=== PATIENT | male | born 1985 | race Caucasian/White ===

== ENCOUNTER 2021-07-01 10:08 | Inpatient (IN) | payer OTHER ==
[~2021-07-01] VITALS: Ht 170.2 cm; Wt 73.0 kg
--- NOTE | 2021-07-01 10:26 | PHYS DOC ---
General Adult EDM: Chief Complaint: CHEST PAIN HPI: HPI: 35 yo M with medical history of anxiety/depression on Lexapro and lumbar back pain, presents to the ED with complaints of throbbing and clenching left-sided chest pain that radiates into his bicep and down into his hand that started at 815 this morning with associated sweating and nausea. States pain and discomfort has been constant. Father with history of AR at 51 and mother with history of AR in her early 40s. Brother has a history of cardiac surgery 1 month ago. Both grandparents with history of coronary artery disease. Patient denies any tobacco, cocaine or methamphetamine abuse. No recent alcohol use. Past surgical history of umbilical hernia repair November 18, 2019. Works in the [employer] at [place] and walks approximately 7 miles per day. Is been vaccinated for COVID and boosted. No history of Covid infection. No excessive caffeine use, drinks 1 soda per day. No personal or family history of AAA, AAD, CTD (ehlos danlos or marfans), sudden or unexplainable (under 50 years of age or with exertion), or clotting disorders. Review of Systems: Review of Systems: Constitutional: Denies fever or chills. [] Eyes: Denies change in visual acuity. [] HENT: Denies nasal congestion or sore throat. [] Respiratory: Denies cough or shortness of breath. [] Cardiovascular: Denies syncope or edema GI: Denies abdominal pain, nausea, vomiting, bloody stools or diarrhea. [] : Denies dysuria or hematuria Musculoskeletal: Denies back pain or joint pain. [] Integument: Denies rash or blistering lesions Neurologic: Denies headache, focal weakness or sensory changes. [] Endocrine: Denies polyuria or polydipsia. [] Lymphatic: Denies swollen glands. [] Psychiatric: Denies depression or anxiety. [] Heart Score: C/O Chest Pain: Yes HEART Score for Chest Pain: HEART Score for Chest Pain Response (Comments) Value History Moderately Suspicious 1 ECG Nonspecific Repolarizatio 1 Age < 45 0 Risk Factors 1 or 2 Risk Factors 1 Troponin < Normal Limit 0 Total 3 Risk Factors: Risk Factors: DM, Current or recent (<one month) smoker, HTN, HLP, family history of CAD, obesity. Risk Scores: Score 0 - 3: 2.5% MACE over next 6 weeks - Discharge Home Score 4 - 6: 20.3% MACE over next 6 weeks - Admit for Clinical Observation Score 7 - 10: 72.7% MACE over next 6 weeks - Early Invasive Strategies Allergies: Allergies: Allergies Coded Allergies Type Severity Reaction Last Updated Verified No Known Drug Allergies 07/01/21 No Physical Exam: PE: Constitutional: Well developed, well nourished, no acute distress, non-toxic appearance. HENT: Normocephalic, atraumatic, Eyes: EOMI, conjunctiva normal, no discharge. Neck: Normal range of motion, supple, Cardiovascular: S1/2 present, bradycardic Lungs & Thorax: Speaking in full sentences, bilateral equal chest rise, no tachypnea or increased work of breathing Abdomen: soft, no tenderness, Skin: Warm, dry, no erythema, no rash. [] Extremities: No tenderness, no cyanosis, no unilateral lower extremity edema Neurologic: Alert and oriented X 3, normal motor function, normal sensory function, no focal deficits noted. [] Psychologic: Affect normal, judgement normal, mood -slightly anxious EKG: EK sinus bradycardia 44 bpm, no axis deviation, normal intervals, suspect hyperacute T waves in 2, 3 and aVF with T wave inversion aVL and V2, slight ST segment depression in aVL, no prior EKG for comparison 1023 sinus bradycardia 44 bpm, no axis deviation, normal intervals, suspect hyperacute T waves in 2, 3 aVF with T wave inversion and ST segment depression in aVL, no change from prior EKG Radiology/Procedures: Radiology/Procedures: IMAGING REPORT Signed PATIENT: ANGIE WILEY ACCOUNT: [id number] : 1985 LOCATION: ER AGE: 35 SEX: M EXAM STATUS: REG ER ORD. PHYSICIAN: SANDRO BUTTS DO REASON: cp PROCEDURE: PORTABLE CHEST 1V AP chest. HISTORY: Chest pain AP view was taken of the chest. Lungs are free of infiltrates. Heart is normal in size. There is no pleural effusion. IMPRESSION: 1. No acute chest disease. Electronically signed by: Carroll Kasper MD (07/01/2021 10:38 AM) [id number] DICTATED and SIGNED BY: CARROLL KASPER MD DATE: 07/01/21 1038 Course & Med Decision Making: Course & Med Decision Making Pertinent Labs and Imaging studies reviewed. (See chart for details) Concern for typical chest pain with hyperacute T-waves in inferior leads. I d/w cardiology, Dr. Buckley at 10:28 who reviewed ekgs and recommended aspirin, heparin bolus and infusion and morphine-he evaluated pt in ed. No cath at this time. Pt with h/o normal stress 2 months ago at . Will admit for further medical management. Patient stable at time of admission agrees with this plan. I have spoken with the patient and/or caregivers. I have explained the patient's condition, diagnosis and treatment plan based on the information available to me at this time. I have answered the patient's and/or caregivers questions and answered any concerns. The patient and/or caregivers have as good an understanding of the patient's diagnosis, condition and treatment plan as can be expected at this point. The patient has been stabilized within the capability of the emergency department. The patient will be transported for further care and management or will be moved to an observation or inpatient service. I have communicated with the staff or medical practitioner taking over this patient's care. Jose Disclaimer: Jose Disclaimer: This electronic medical record was generated, in whole or in part, using a voice recognition dictation system. Departure Departure Impression: Primary Impression: Chest pain at rest Disposition: ADMITTED INPATIENT Admitting Physician: KELECHI (Dr. Zarco) Condition: GUARDED Referrals: UNKNOWN PCP NAME (PCP) SANDRO BUTTS DO Jul 01, 2021 10:26
[2021-07-01 10:29] LABS: BASO # 0.1 x10^3/uL (0.0-0.2); BASO % 1 % (0-3); EOS # 0.1 x10^3/uL (0.0-0.7); EOS % 1 % (0-3); HEMATOCRIT 43.4 % (39.0-53.0); HEMOGLOBIN 14.9 g/dL (13.0-17.5); LYMPH # 1.4 x10^3/uL (1.0-4.8); LYMPH % 19 % (24-48); MEAN CORPUSCULAR HEMOGLOBIN 31 pg (25-35); MEAN CORPUSCULAR HGB CONC 34 g/dL (31-37); MEAN CORPUSCULAR VOLUME 90 fL (79-100); MONO # 0.4 x10^3/uL (0.0-1.1); MONO % 6 % (0-9); NEUT # 5.3 x10^3/uL (1.8-7.7); NEUT % 73 % (31-73); PLATELET COUNT 218 x10^3/uL (140-400); RED BLOOD COUNT 4.81 x10^6/uL (4.30-5.70); RED CELL DISTRIBUTION WIDTH 13.2 % (11.5-14.5); WHITE BLOOD COUNT 7.3 x10^3/uL (4.0-11.0)
[2021-07-01] MEDS ORDERED: ASPIRIN CHEWABLE 81 MG TABLET. PO ONE (10:30)
[2021-07-01] MEDS ORDERED: HEPARIN for IV BOLUS 10,000 UNIT/10 ML VIAL. IV PRN (10:30)
[2021-07-01] MEDS ORDERED: ONDANSETRON PF 4 MG/2 ML VIAL. IVP ONE (10:30)
[2021-07-01] MEDS ORDERED: IV NORMAL SALINE 1000ML BAG 1,000 ML IV SCH (10:30)
[2021-07-01] MEDS ORDERED: MORPHINE SULFATE 4 MG/ML INJ. IVP ONE (10:30)
[2021-07-01] MEDS ORDERED: HEPARIN for IV BOLUS 10,000 UNIT/10 ML VIAL. ONE (10:33)
[2021-07-01] MEDS ORDERED: HEPARIN 25,000UTS/250ML PREMIX 250 ML IV ONE (10:33)
[2021-07-01 10:36] LABS: CALCIUM 8.9 mg/dL (8.5-10.1); CREATININE 1.2 mg/dL (0.7-1.3); GFR 68.1; POTASSIUM 3.9 mmol/L (3.5-5.1)
--- NOTE | 2021-07-01 10:41 | RAD ---
AP chest. HISTORY: Chest pain AP view was taken of the chest. Lungs are free of infiltrates. Heart is normal in size. There is no p leural effusion. IMPRESSION: 1. No acute chest disease. Electronically signed by: Carroll Kasper MD (07/01/2021 10:38 AM) [id number]
[2021-07-01 10:42] LABS: ALBUMIN 4.4 g/dL (3.4-5.0); ALBUMIN/GLOBULIN RATIO 1.4 (1.0-1.7); TOTAL BILIRUBIN 0.7 mg/dL (0.2-1.0); TOTAL PROTEIN 7.6 g/dL (6.4-8.2)
[2021-07-01] MEDS: HEPARIN 25,000UTS/250ML PREMIX 250 ML IV PRN (10:43)
[2021-07-01] MEDS ORDERED: HEPARIN for IV BOLUS 10,000 UNIT/10 ML VIAL. IV ONE (10:45)
[2021-07-01 12:42] LABS: PROTHROMBIN TIME PATIENT 12.9 SEC (11.7-14.0)
--- NOTE | 2021-07-01 12:52 | HP ---
DATE OF SERVICE: 07/01/2021 ADMIT DATE: 07/01/2021 CHIEF COMPLAINT: Chest pain. HISTORY OF PRESENT ILLNESS: The patient is a pleasant 35-year-old male who presents to the ER with chest pain, rates it 710. He feels like he may be having a heart attack, it is in the left side of his chest and into his biceps and down his hand, started at 8:30 this morning. His family has had coronary artery disease in fact, his dad had a heart attack at 51 and his mother has a history of coronary artery disease in her 40s. Dr. Branham saw the patient in the ER. He was placed on a heparin drip. It should be noted that the patient had a normal stress test a couple months ago. We are going to admit the patient and Dr. Buckley is considering cardiac catheterization. PAST MEDICAL HISTORY: Chest pain and previous stress test that was apparently negative. ALLERGIES: None. FAMILY HISTORY: Coronary artery disease. SOCIAL HISTORY: He does not drink, smoke or take drugs. MEDICATIONS: Reviewed, please refer to the MRAD. REVIEW OF SYSTEMS: GENERAL: No history of weight change, weakness or fevers. SKIN: No bruising, hair changes or rashes. EYES: No blurred, double or loss of vision. NOSE AND THROAT: No history of nosebleeds, hoarseness or sore throat. HEART: He complains of intermittent chest pain. LUNGS: Denies cough, hemoptysis, wheezing or shortness of breath. GASTROINTESTINAL: Denies changes in appetite, nausea, vomiting, diarrhea or constipation. GENITOURINARY: No history of frequency, urgency, hesitancy or nocturia. NEUROLOGIC: Denies history of numbness, tingling, tremor or weakness. PSYCHIATRIC: No history of panic, anxiety or depression. ENDOCRINE: No history of heat or cold intolerance, polyuria or polydipsia. EXTREMITIES: Denies muscle weakness, joint pain, pain on walking or stiffness. PHYSICAL EXAMINATION: VITALS: Within normal limits and are stable. GENERAL: No apparent distress. Alert and oriented. HEENT: Normal cephalic atraumatic, external auditory canals are patent EYES: Extraocular muscles are intact, pupils are equally round and reactive to light and accommodation MUSCULOSKELETAL: Well developed, well nourished, good range of motion ENDOCRINE: No thyromegaly was palpated LYMPHATICS: No cervical chain or axillary nodes were noted HEMATOPOIETIC: No bruising NECK: Supple, no JVD, no thyromegaly was noted. LUNGS: Clear to auscultation in all lung jarrell without rhonchi or wheezing. HEART: RRR, S1, S2 present. Peripheral pulses intact, no obvious murmurs were noted. ABDOMEN: Soft, nontender. Positive bowel sounds no organomegaly, normal bowel sounds. EXTREMITIES: Without any cyanosis, clubbing, or edema. Pedal pulses intact, Homans sign is negative. NEUROLOGIC: Normal speech, normal tone. A and O x 3, moves all extremities, no obvious focal deficits. PSYCHIATRIC: Normal affect, normal mood. Stable. SKIN: No ulcerations or rashes, good skin turgor, no jaundice. VASCULAR: Good capillary refill, neurovascular bundle appears to be intact. LABORATORY DATA: Troponin is 6. Chest x-ray is negative. EKG shows some subtle ST elevation in the inferior leads. ASSESSMENT AND PLAN: Chest pain with subtle ST changes in the inferior leads. The patient has been admitted. We will consult Cardiology. We placed on a heparin drip. Dr. Buckley is considering possible cardiac catheterization. Home meds. Deep venous thrombosis prophylaxis. Full code. Cardiac monitoring. P.r.n. morphine. NEO/PRA DR: NEO/carolyn TID: [id number]
--- NOTE | 2021-07-01 14:13 | PDOC2 ---
CONSULT Date of Consult Date of Consult DATE: 07/01/21 TIME: 14:06 Reason for Consult Reason for Consult: Chest pain Referring Physician Referring Physician: Dr. Zarco Identification/Chief Complaint Chief Complaint Chest pain Source Source: Chart review, Patient History of Present Illness Reason for Visit: The patient is a 35-year-old male who presents to the emergency room with episodes of left-sided chest pain with some radiation to his left arm. This started earlier this morning. He states that he has had recurrent episodes of chest discomfort. His EKG shows a sinus rhythm with some mild ST segment changes in the inferior leads. He was initially treated with heparin and pain medications and is feeling significantly better at this time. His chest x-ray shows no acute disease. He has a strong family history of early coronary disease. He also reports a normal treadmill stress echo at approximately 2 months ago with him reportedly walking from more than 12 minutes on a Jean protocol. He remains quite active up until today and walks greater than 6 miles a day by his report. Initial lab included a troponin of 6 BNP of 60 and a D- dimer of less than 0.27. Past Medical History Cardiovascular: Other (Chest pain) Musculoskeletal: low back pain Past Surgical History Past Surgical History: No pertinent history Family History Family History: Other (Strong family history of early coronary disease) Social History No ALCOHOL: none Current Problem List Problem List Problems Medical Problems: (1) Chest pain at rest Status: Acute Current Medications Current Medications Current Medications Aspirin (Aspirin Chewable) 324 mg 1X ONCE PO Last administered on 07/01/21at 10:38; Start 07/01/21 at 10:30; Stop 07/01/21 at 10:31; Status DC Sodium Chloride 1,000 ml @ 1,000 mls/hr Q1H IV Last administered on 07/01/21at 10:40; Start 07/01/21 at 10:30; Stop 07/01/21 at 11:29; Status DC Ondansetron HCl (Zofran) 4 mg 1X ONCE IVP Last administered on 07/01/21at 10:38; Start 07/01/21 at 10:30; Stop 07/01/21 at 10:31; Status DC Morphine Sulfate (Morphine Sulfate) 4 mg 1X ONCE IVP Last administered on 07/01/21at 10:39; Start 07/01/21 at 10:30; Stop 07/01/21 at 10:31; Status DC Heparin Sodium (Porcine) (Heparin Sodium) 4,000 unit 1X ONCE IV Last adminis tered on 07/01/21at 10:37; Start 07/01/21 at 10:45; Stop 07/01/21 at 10:46; Status DC Heparin Sodium/ Dextrose 250 ml @ 8.724 mls/ hr CONT PRN IV PER PROTOCOL Last administered on 07/01/21at 10:43; Start 07/01/21 at 10:30 Heparin Sodium (Porcine) (Heparin Sodium) 1,800 unit PRN Q6HRS PRN IV FOR UFH LEVEL LESS THAN 0.2; Start 07/01/21 at 10:30 Heparin Sodium (Porcine) (Heparin Sodium) 10,000 unit STK-MED ONCE .ROUTE ; Start 07/01/21 at 10:33; Stop 07/01/21 at 10:33; Status DC Heparin Sodium/ Dextrose 250 ml @ As Directed STK-MED ONCE IV ; Start 07/01/21 at 10:33; Stop 07/01/21 at 10:33; Status DC Allergies Allergies: Coded Allergies: No Known Drug Allergies (Unverified , 07/01/21) ROS Cardiovascular: yes Chest Pain Physical Exam General: mild distress HEENT: Atraumatic Lungs: Clear to auscultation Heart: Regular rate Abdomen: Normal bowel sounds Vitals VITALS Vital Signs Date Time Temp Pulse Resp B/P (MAP) Pulse Ox O2 Delivery O2 Flow Rate FiO2 07/01/21 12:47 48 14 121/72 (88) 98 Room Air 07/01/21 10:18 97.7 97.7 Labs Labs Laboratory Tests Test 07/01/21 10:19 07/01/21 10:30 07/01/21 12:24 White Blood Count 7.3 x10^3/uL (4.0-11.0) Red Blood Count 4.81 x10^6/uL (4.30-5.70) Hemoglobin 14.9 g/dL (13.0-17.5) Hematocrit 43.4 % (39.0-53.0) Mean Corpuscular Volume 90 fL (79-100) Mean Corpuscular Hemoglobin 31 pg (25-35) Mean Corpuscular Hemoglobin Concent 34 g/dL (31-37) Red Cell Distribution Width 13.2 % (11.5-14.5) Platelet Count 218 x10^3/uL (140-400) Neutrophils (%) (Auto) 73 % (31-73) Lymphocytes (%) (Auto) 19 % (24-48) Monocytes (%) (Auto) 6 % (0-9) Eosinophils (%) (Auto) 1 % (0-3) Basophils (%) (Auto) 1 % (0-3) Neutrophils # (Auto) 5.3 x10^3/uL (1.8-7.7) Lymphocytes # (Auto) 1.4 x10^3/uL (1.0-4.8) Monocytes # (Auto) 0.4 x10^3/uL (0.0-1.1) Eosinophils # (Auto) 0.1 x10^3/uL (0.0-0.7) Basophils # (Auto) 0.1 x10^3/uL (0.0-0.2) D-Dimer ([place]) < 0.27 ug/mlFEU Heparin Anti-Xa Act, Unfractionated < 0.10 IU/mL (0.30-0.70) Sodium Level 140 mmol/L (136-145) Potassium Level 3.9 mmol/L (3.5-5.1) Chloride Level 105 mmol/L (98-107) Carbon Dioxide Level 29 mmol/L (21-32) Anion Gap 6 (6-14) Blood Urea Nitrogen 14 mg/dL (8-26) Creatinine 1.2 mg/dL (0.7-1.3) Estimated GFR (Cockcroft-Gault) 68.1 BUN/Creatinine Ratio 12 (6-20) Glucose Level 130 mg/dL (70-99) Calcium Level 8.9 mg/dL (8.5-10.1) Magnesium Level 2.0 mg/dL (1.8-2.4) Total Bilirubin 0.7 mg/dL (0.2-1.0) Aspartate Amino Transf (AST/SGOT) 14 U/L (15-37) Alanine Aminotransferase (ALT/SGPT) 16 U/L (16-63) Alkaline Phosphatase 59 U/L (46-116) Troponin I High Sensitivity 6 ng/L (4-75) WS-Jct-O-Type Natriuretic Peptide 60 pg/mL (0-124) Total Protein 7.6 g/dL (6.4-8.2) Albumin 4.4 g/dL (3.4-5.0) Albumin/Globulin Ratio 1.4 (1.0-1.7) Prothrombin Time 12.9 SEC (11.7-14.0) Prothromb Time International Ratio 1.0 (0.8-1.1) Activated Partial Thromboplast Time 27 SEC (24-38) SARS-CoV-2 Antigen (Rapid) Negative (NEGATIVE) Laboratory Tests Test 07/01/21 10:19 07/01/21 10:30 07/01/21 12:24 White Blood Count 7.3 x10^3/uL (4.0-11.0) Red Blood Count 4.81 x10^6/uL (4.30-5.70) Hemoglobin 14.9 g/dL (13.0-17.5) Hematocrit 43.4 % (39.0-53.0) Mean Corpuscular Volume 90 fL (79-100) Mean Corpuscular Hemoglobin 31 pg (25-35) Mean Corpuscular Hemoglobin Concent 34 g/dL (31-37) Red Cell Distribution Width 13.2 % (11.5-14.5) Platelet Count 218 x10^3/uL (140-400) Neutrophils (%) (Auto) 73 % (31-73) Lymphocytes (%) (Auto) 19 % (24-48) Monocytes (%) (Auto) 6 % (0-9) Eosinophils (%) (Auto) 1 % (0-3) Basophils (%) (Auto) 1 % (0-3) Neutrophils # (Auto) 5.3 x10^3/uL (1.8-7.7) Lymphocytes # (Auto) 1.4 x10^3/uL (1.0-4.8) Monocytes # (Auto) 0.4 x10^3/uL (0.0-1.1) Eosinophils # (Auto) 0.1 x10^3/uL (0.0-0.7) Basophils # (Auto) 0.1 x10^3/uL (0.0-0.2) D-Dimer ([place]) < 0.27 ug/mlFEU Heparin Anti-Xa Act, Unfractionated < 0.10 IU/mL (0.30-0.70) Sodium Level 140 mmol/L (136-145) Potassium Level 3.9 mmol/L (3.5-5.1) Chloride Level 105 mmol/L (98-107) Carbon Dioxide Level 29 mmol/L (21-32) Anion Gap 6 (6-14) Blood Urea Nitrogen 14 mg/dL (8-26) Creatinine 1.2 mg/dL (0.7-1.3) Estimated GFR (Cockcroft-Gault) 68.1 BUN/Creatinine Ratio 12 (6-20) Glucose Level 130 mg/dL (70-99) Calcium Level 8.9 mg/dL (8.5-10.1) Magnesium Level 2.0 mg/dL (1.8-2.4) Total Bilirubin 0.7 mg/dL (0.2-1.0) Aspartate Amino Transf (AST/SGOT) 14 U/L (15-37) Alanine Aminotransferase (ALT/SGPT) 16 U/L (16-63) Alkaline Phosphatase 59 U/L (46-116) Troponin I High Sensitivity 6 ng/L (4-75) YD-Onq-E-Type Natriuretic Peptide 60 pg/mL (0-124) Total Protein 7.6 g/dL (6.4-8.2) Albumin 4.4 g/dL (3.4-5.0) Albumin/Globulin Ratio 1.4 (1.0-1.7) Prothrombin Time 12.9 SEC (11.7-14.0) Prothromb Time International Ratio 1.0 (0.8-1.1) Activated Partial Thromboplast Time 27 SEC (24-38) SARS-CoV-2 Antigen (Rapid) Negative (NEGATIVE) Images Images Chest x-ray with no acute changes. Assessment/Plan Assessment/Plan 1. Chest pain. Patient's initial troponin is normal. BNP is 60 and D-dimer is less than 0.27. The patient's EKG shows some nonspecific inferior ST segment changes. He reports a normal stress echo at approximately 2 months ago with walking greater than 12 minutes on a Jean protocol. He is feeling significantly better after initial treatment. We will admit and treat with anticoagulation. Will rule out for an NM. Will check old records at . Patient potentially may require catheterization tomorrow. 2. History of apparent borderline hypertension. We will continue present medications and monitor. 3. Uncertain cholesterol panel. Will check morning lab. Thank you for allowing us to participate in the care of your patient. ANGIE MEYER MD Jul 01, 2021 14:13
[2021-07-01 15:00] VITALS: BP 120/75
[2021-07-01 16:00] VITALS: BP 100/59
[2021-07-01] MEDS ORDERED: MORPHINE SULFATE 2 MG/ML INJ. IV PRN (16:00)
[2021-07-01 16:05] LABS: BACTERIA,URINE 0 /HPF (0-FEW); BILIRUBIN,URINE NEGATIVE (NEG); CLARITY,URINE CLEAR; COLOR,URINE YELLOW; NITRITE,URINE NEGATIVE (NEG); PH,URINE 7.5 (<5.0-8.0); PROTEIN,URINE NEGATIVE (NEG-TRACE); RBC,URINE 0 /HPF (0-2); UROBILINOGEN,URINE 0.2 mg/dL (0.2 mg/dL); WBC,URINE 0 /HPF (0-4)
[2021-07-01 16:26] LABS: AMPHETAMINE/METHAMPHETAMINE NEG (NEG); BARBITURATES NEG (NEG); BENZODIAZEPINES NEG (NEG); CANNABINOIDS NEG (NEG); COCAINE NEG (NEG); METHADONE NEG (NEG); OPIATES POS (NEG); PHENCYCLIDINE NEG (NEG)
[2021-07-01] MEDS ORDERED: NITROGLYCERIN SUBLINGUAL 0.4 MG BOTTLE OF 25. SL ONE (16:41)
[2021-07-01 17:00] VITALS: BP 92/54
[2021-07-01] MEDS ORDERED: NITROGLYCERIN SUBLINGUAL 0.4 MG BOTTLE OF 25. SL PRN (17:00)
[2021-07-01] MEDS ORDERED: MORPHINE SULFATE 2 MG/ML INJ. IVP ONE (17:15)
[2021-07-01] MEDS ORDERED: IV NORMAL SALINE 500ML BAG 500 ML IV ONE (17:30)
[2021-07-01] MEDS: LORazepam 0.5 MG TABLET PO PRN ×2 (17:41→23:17)
[2021-07-01 18:00] VITALS: BP 100/61
--- NOTE | 2021-07-01 18:38 | EKG ---
[facility] [address] [place] [address] Test Date: 2021-07-01 Test Time: 10:14:21 Pat Name: ANGIE WILEY Department: Room: [facility] Gender: M Underwriter: : 1985 Requested By: SANDRO BUTTS Order Number: [id number] Reading MD: Mark Lange MD Measurements Intervals [place] Rate: 44 P: 62 [place]: 146 QRS: 68 QRSD: 92 T: 87 QT: 492 QTc: 421 Interpretive Statements SINUS BRADYCARDIA LEFT ATRIAL ABNORMALITY CONSIDER RIGHT VENTRICULAR HYPERTROPHY ST & T ABNORMALITY, CONSIDER HIGH LATERAL ISCHEMIA OR LEFT VENTRICULAR STRAIN ABNORMAL ECG Electronically Signed On 07-02-2021 8:34:32 CDT by Mark Lange MD
--- NOTE | 2021-07-01 18:39 | EKG ---
[facility] [address] [place] [address] Test Date: 2021-07-01 Test Time: 10:23:03 Pat Name: ANGIE WILEY Department: Room: Gender: Business Support Specialist: : 1985 Requested By: SANDRO BUTTS Order Number: [id number] Reading MD: Measurements Intervals [place] Rate: 44 P: 54 [place]: 140 QRS: 59 QRSD: 92 T: 79 QT: 476 QTc: 407 Interpretive Statements SINUS BRADYCARDIA ATRIAL PREMATURE COMPLEX(ES) T ABNORMALITY IN HIGH LATERAL LEADS ABNORMAL ECG RI6.02 Compared to ECG 07/01/2021 10:14:21 Atrial abnormality no longer present Possible ischemia no longer present T-wave abnormality still present
--- NOTE | 2021-07-01 18:47 | EKG ---
[facility] [address] [place] [address] Test Date: 2021-07-01 Test Time: 11:18:38 Pat Name: ANGIE WILEY Department: Room: [facility] Gender: M Sales Support Engineer: : 1985 Requested By: ANGIE MEYER Order Number: [id number] Reading MD: Mark Lange MD Measurements Intervals [place] Rate: 41 P: 54 [place]: 154 QRS: 60 QRSD: 90 T: 87 QT: 474 QTc: 392 Interpretive Statements SINUS BRADYCARDIA ABNORMAL EKG WITH INFERIOR/LATERAL ISCHEMIA Electronically Signed On 07-02-2021 8:34:00 CDT by Mark Lange MD
[2021-07-01] MEDS ORDERED: OMEP40CA7 PO (19:55)
[2021-07-01] MEDS ORDERED: LEXAPRO20 MG PO (19:55)
[2021-07-01] MEDS ORDERED: MULT-246 PO (19:55)
[2021-07-01 20:50] VITALS: BP 100/68
[2021-07-01 23:10] VITALS: BP 94/61
[2021-07-02] VITALS (7 sets, daily range): BP systolic 95–129; BP diastolic 53–73
[2021-07-02] MEDS: HEPARIN 25,000UTS/250ML PREMIX 250 ML IV PRN (07:45)
[2021-07-02] MEDS ORDERED: IODIXANOL 320 MG/ML 100 ML VIAL. ONE (08:00)
[2021-07-02] MEDS ORDERED: HEPARIN for ARTERIAL LINE 1,500 ML ONE (08:00)
[2021-07-02] MEDS ORDERED: LIDOCAINE 1% PF 2 ML VIAL. ONE (08:00)
[2021-07-02 08:05] LABS: HEMOGLOBIN 12.9 g/dL (13.0-17.5); RED BLOOD COUNT 4.18 x10^6/uL (4.30-5.70); RED CELL DISTRIBUTION WIDTH 13.5 % (11.5-14.5); WHITE BLOOD COUNT 9.7 x10^3/uL (4.0-11.0)
[2021-07-02] MEDS ORDERED: fentaNYL PF VIAL 100 MCG/2 ML VIAL ONE (08:22)
[2021-07-02] MEDS ORDERED: VERAPAMIL 5 MG/2 ML VIAL. ONE (08:22)
[2021-07-02] MEDS ORDERED: MIDAZOLAM HCL/PF 2 MG/2 ML VIAL. ONE (08:22)
[2021-07-02] MEDS ORDERED: HEPARIN for IV BOLUS 10,000 UNIT/10 ML VIAL. ONE (08:22)
[2021-07-02] MEDS ORDERED: NITROGLYCERIN 200 MCG/2 ML SYRINGE FOR CATH/VASC LAB. ONE ×2 (08:22→10:11)
[2021-07-02 08:31] LABS: CALCIUM 8.4 mg/dL (8.5-10.1); CREATININE 1.1 mg/dL (0.7-1.3); GFR 75.3; POTASSIUM 3.7 mmol/L (3.5-5.1)
[2021-07-02 08:32] LABS: CHOLESTEROL/HDL RATIO 3.2
[2021-07-02] MEDS ORDERED: TIROFIBAN 12.5MG -0.9% NS 250 ML IV ONE (08:50)
[2021-07-02] MEDS ORDERED: ATROPINE 1 MG/10 ML DISP.SYRINGE. ONE (08:50)
[2021-07-02] MEDS: TIROFIBAN 12.5MG -0.9% NS 250 ML IV PRN ×2 (08:51→22:17)
[2021-07-02] MEDS ORDERED: PRASUGREL 10 MG TABLET. ONE (09:19)
[2021-07-02] MEDS ORDERED: ASPIRIN 325 MG TABLET ONE (09:20)
[2021-07-02] MEDS ORDERED: HEPARIN for IV BOLUS 10,000 UNIT/10 ML VIAL. IART ONE (09:45)
[2021-07-02] MEDS ORDERED: fentaNYL PF VIAL 100 MCG/2 ML VIAL IV ONE (09:45)
[2021-07-02] MEDS ORDERED: NITROGLYCERIN 200 MCG/2 ML SYRINGE FOR CATH/VASC LAB. IART ONE (09:45)
[2021-07-02] MEDS ORDERED: PRASUGREL 10 MG TABLET. PO ONE (09:45)
[2021-07-02] MEDS ORDERED: LIDOCAINE 1% PF 2 ML VIAL. INJ ONE (09:45)
[2021-07-02] MEDS ORDERED: MIDAZOLAM HCL/PF 2 MG/2 ML VIAL. IV ONE (09:45)
[2021-07-02] MEDS ORDERED: IODIXANOL 320 MG/ML 100 ML VIAL. IART ONE (09:45)
[2021-07-02] MEDS ORDERED: ASPIRIN 325 MG TABLET PO ONE (09:45)
[2021-07-02] MEDS ORDERED: VERAPAMIL 5 MG/2 ML VIAL. IART ONE (09:45)
[2021-07-02] MEDS ORDERED: NITROGLYCERIN 200 MCG/2 ML SYRINGE FOR CATH/VASC LAB. ICAR ONE (09:45)
[2021-07-02] MEDS ORDERED: CONTRAST GIVEN. MC PRN (10:00)
--- NOTE | 2021-07-02 10:32 | PDOC ---
[facility] PROGRESS NOTE Date of Service DOS: DATE: 07/02/21 TIME: 10:30 Chief Complaint Chief Complaint Acute AR Status post cardiac catheterization with 2 stents to the RCA History of Present Illness History of Present Illness 07/02/2021 Patient seen and examined His is here with him she seems to be good support for him Patient had cardiac cath this morning got 2 stents to the RCA Currently on Aggrastat drip Discussed with RN Chart reviewed Vitals/I&O Vitals/I&O: Vital Signs Date Time Temp Pulse Resp B/P (MAP) Pulse Ox O2 Delivery O2 Flow Rate FiO2 07/02/21 09:45 71 07/02/21 09:35 14 99 Nasal Cannula 2.0 07/02/21 07:00 98.0 101/68 (79) 98.0 I & O 07/01/21 07/01/21 07/02/21 15:00 23:00 07:00 Intake Total 1000 ml 180 ml 260 ml Output Total 300 ml 300 ml Balance 1000 ml -120 ml -40 ml Physical Exam General: Alert, No acute distress Heart: Regular rate Abdomen: Normal bowel sounds Labs Labs: Laboratory Tests Test 07/01/21 12:24 07/01/21 13:30 07/01/21 15:39 07/01/21 16:45 SARS-CoV-2 Antigen (Rapid) Negative (NEGATIVE) Troponin I High Sensitivity 82 ng/L (4-75) Urine Collection Type Unknown Urine Color Yellow Urine Clarity Clear Urine pH 7.5 (<5.0-8.0) Urine Specific [place] 1.015 (1.000-1.030) Urine Protein Negative mg/dL (NEG-TRACE) Urine Glucose (UA) Negative mg/dL (NEG) Urine Ketones (Stick) Trace mg/dL (NEG) Urine Blood Negative (NEG) Urine Nitrite Negative (NEG) Urine Bilirubin Negative (NEG) Urine Urobilinogen Dipstick 0.2 mg/dL (0.2 mg/dL) Urine Leukocyte Esterase Negative (NEG) Urine RBC 0 /HPF (0-2) Urine WBC 0 /HPF (0-4) Urine Bacteria 0 /HPF (0-FEW) Urine Mucus Slight /LPF Urine Opiates Screen Pos (NEG) Urine Methadone Screen Neg (NEG) Urine Barbiturates Neg (NEG) Urine Phencyclidine Screen Neg (NEG) Urine Amphetamine/Methamphetamine Neg (NEG) Urine Benzodiazepines Screen Neg (NEG) Urine Cocaine Screen Neg (NEG) Urine Cannabinoids Screen Neg (NEG) Urine Ethyl Alcohol Neg (NEG) Heparin Anti-Xa Act, Unfractionated 0.25 IU/mL (0.30-0.70) Test 07/01/21 20:04 07/02/21 01:20 07/02/21 07:55 Troponin I High Sensitivity 2486 ng/L (4-75) Heparin Anti-Xa Act, Unfractionated 0.19 IU/mL (0.30-0.70) 0.64 IU/mL (0.30-0.70) White Blood Count 9.7 x10^3/uL (4.0-11.0) Red Blood Count 4.18 x10^6/uL (4.30-5.70) Hemoglobin 12.9 g/dL (13.0-17.5) Hematocrit 38.0 % (39.0-53.0) Mean Corpuscular Volume 91 fL (79-100) Mean Corpuscular Hemoglobin 31 pg (25-35) Mean Corpuscular Hemoglobin Concent 34 g/dL (31-37) Red Cell Distribution Width 13.5 % (11.5-14.5) Platelet Count 180 x10^3/uL (140-400) Sodium Level 140 mmol/L (136-145) Potassium Level 3.7 mmol/L (3.5-5.1) Chloride Level 107 mmol/L (98-107) Carbon Dioxide Level 27 mmol/L (21-32) Anion Gap 6 (6-14) Blood Urea Nitrogen 11 mg/dL (8-26) Creatinine 1.1 mg/dL (0.7-1.3) Estimated GFR (Cockcroft-Gault) 75.3 Glucose Level 123 mg/dL (70-99) Calcium Level 8.4 mg/dL (8.5-10.1) Triglycerides Level 77 mg/dL (0-150) Cholesterol Level 133 mg/dL (0-200) LDL Cholesterol, Calculated 76 mg/dL (0-100) VLDL Cholesterol, Calculated 15 mg/dL (0-40) Non-HDL Cholesterol Calculated 91 mg/dL (0-129) HDL Cholesterol 42 mg/dL (40-60) Cholesterol/HDL Ratio 3.2 Thyroid Stimulating Hormone (TSH) 0.339 uIU/mL (0.358-3.74) Assessment and Plan Assessmemt and Plan Problems Medical Problems: (1) Chest pain at rest Status: A Acute AR Status post cardiac cath with 2 stents to the RCA Plan Appreciate cardiology intervention Continue cardiac monitoring Continue Aggrastat Hope to change to p.o. Plavix tomorrow Cardiac cocktail on discharge (beta-blockade statins LINDSEY inhibitor's antiplatelet drugs) Home meds DVT prophylaxis Full code Comment Review of Relevant I have reviewed the following items brigid (where applicable) has been applied. Medications: Current Medications Medications (Trade) Dose Ordered Sig/Kelsey Route PRN Reason Start Time Stop Time Status Last Admin Dose Admin Heparin Sodium (Porcine) (Heparin Sodium) 4,000 unit 1X ONCE IV 07/01/21 10:45 07/01/21 10:46 DC 07/01/21 10:37 Lorazepam (Ativan) 0.25 mg PRN Q6HRS PRN PO ANXIETY / AGITATION 07/01/21 14:45 07/01/21 23:17 Morphine Sulfate (Morphine Sulfate) 2 mg PRN Q2HR PRN IV PAIN 07/01/21 16:00 07/01/21 15:59 Nitroglycerin (Nitrostat) 0.4 mg PRN Q5MIN PRN SL CHEST PAIN 07/01/21 17:00 07/01/21 17:12 Sodium Chloride 500 ml @ 250 mls/hr 1X ONCE IV 07/01/21 17:30 07/01/21 19:29 DC 07/01/21 17:35 Nitroglycerin (Nitroglycerin) 200 mcg 1X ONCE IART 07/02/21 09:45 07/02/21 09:48 DC 07/02/21 09:45 Verapamil HCl (Verapamil) 2.5 mg 1X ONCE IART 07/02/21 09:45 07/02/21 09:48 DC 07/02/21 09:45 Heparin Sodium (Porcine) (Heparin Sodium) 2,500 unit 1X ONCE IART 07/02/21 09:45 07/02/21 09:48 DC 07/02/21 09:45 Heparin Sodium/ Sodium Chloride (HEPARIN for ARTERIAL LINE FLUSH) 1,000 unit 1X ONCE IART 07/02/21 09:45 07/02/21 09:48 DC 07/02/21 08:30 Midazolam HCl (Versed) 2 mg 1X ONCE IV 07/02/21 09:45 07/02/21 09:48 DC 07/02/21 08:42 Fentanyl Citrate (Fentanyl 2ml Vial) 100 mcg 1X ONCE IV 07/02/21 09:45 07/02/21 09:48 DC 07/02/21 09:14 Iodixanol (Visipaque 320) 103 ml 1X ONCE IART 07/02/21 09:45 07/02/21 09:48 DC 07/02/21 09:45 Prasugrel (Effient) 60 mg 1X ONCE PO 07/02/21 09:45 07/02/21 09:48 DC 07/02/21 09:32 Aspirin (Gopi Aspirin) 325 mg 1X ONCE PO 07/02/21 09:45 07/02/21 09:48 DC 07/02/21 09:32 Tirofiban/Sodium Chloride 250 ml @ 0 mls/hr CONT PRN IV PER PROTOCOL 07/02/21 09:45 07/03/21 03:44 07/02/21 08:51 Lidocaine HCl (Xylocaine-Mpf 1% 2ml Vial) 2 ml 1X ONCE INJ 07/02/21 09:45 07/02/21 09:48 DC 07/02/21 08:20 Nitroglycerin (Nitroglycerin) 200 mcg 1X ONCE ICAR 07/02/21 09:45 07/02/21 09:48 DC 07/02/21 09:13 Justifications for Admission Other Justification ELIAN ZIMMERMAN III DO Jul 02, 2021 10:32
--- NOTE | 2021-07-02 11:21 | NUR ---
SS following for discharge planning. SS reviewed pt chart and discussed with pt RN. Pt is from home with spouse and is currently on room air. COVID19 negative. Cardiology following. Pt on Tirofiban drip. Not ready. Discharge plan is currently to home when medically ready for discharge. SS will continue to follow for discharge planning.
--- NOTE | 2021-07-02 17:39 | CARD ---
MR#: [id number] Date of Study: 07/02/2021 Ordering Physician: RAKESH LANGE, Referring Physician: RAKESH LANGE, Tech: Leah Anderson APPROVED REPORT Technologist: Leah Anderson Nurse: Brionna Ragsdale RN Procedure(s) performed: fl time: 9.2 min dose: 73 gycm2 contrast: 103 ml moderate sedation: 51 mins Left heart cath, coronary angiography, intravascular ultrasound Complex PCI of the right coronary artery Acute VA with non-ST elevation myocardial infarction. INDICATION The indication(s) include : non-STEMI . CSHA Clinical Frailty Scale [facility] Clinical Frailty Scale: Managing Well Heart Failure Heart Failure: No CASE TECHNIQUE IV conscious sedation was used throughout procedure with appropriate monitoring and was performed in the presence of a registered nurse who was an independent trained observer other than the physician p erforming the procedure. During this case, Fluoroscopy and low osmolar contrast were used for imaging . Specimen(s) Removed: N/A Estimated Blood loss: 15 cc's. PROCEDURE NARRATIVE Clinical information: 35-year-old male presented to the hospital in the setting of worsening chest pain with an elevated tr oponin. Procedure details: After appropriate informed consent the right wrist was prepped and draped in usual sterile fashion. Under 1% lidocaine local anesthesia a 6 Malian sheath was placed in the right radial artery. Next di agnostic angiography was performed with a 6 Malian TIG catheter. Left ventricular end-diastolic pres sure was obtained with a pigtail catheter and a pullback was performed. Findings: Aorta 110/80 LVEDP: 18 mmHg No LV to aortic pullback gradient Coronary angiography: Left main is a large-caliber vessel with normal angiographic appearance LAD is a moderate to large caliber vessel with a proximal 30 to 40% stenosis Left circumflex is a large-caliber vessel with normal angiographic appearance OM1 and OM 2 are small caliber vessels with normal angiographic appearance RCA is a moderate caliber vessel with a long proximal to mid 70 to 99% stenosis with LUCY II flow. Interventional technique: Heparin and tirofiban were used for anticoagulation. Through a JR4 guide catheter a [employer] wire wa s able to traverse the proximal and mid stenoses. Balloon angioplasty was performed with a 2.0 x 20 mm balloon and the lesion was stented after intravascular ultrasound confirmed appropriate size of ap proximately 3 to 3.5 mm from the distal RCA to the proximal RCA with overlapping 3.0 x 38 and 3.5 x 3 2 mm Promus Elite drug-eluting stents. Final post PCI angiography demonstrated excellent stent expan kenrick with LUCY-3 flow in the vessel no evidence of guide or wire related complications. Patient rece ived 60 mg of prasugrel at case completion. No acute complications LUCY Flow LUCY Flow (Pre-Intervention): LUCY-2 LUCY Flow (Post-Intervention): LUCY-3 Conclusion 1. Acute on chronic diastolic heart failure 2. Two-vessel coronary artery disease 3. Successful complex PCI with intravascular ultrasound guidance of the right coronary artery with i mplantation of overlapping 3.0 x 38 and 3.5 x 32 mm Promus Elite drug-eluting stents. Recommendations Aspirin 81 mg daily Prasugrel 10 mg daily High-dose statin therapy Echocardiogram prior to discharge Cardiac rehabilitation referral Signed by : Rakesh Lange, Electronically Approved : 07/02/2021 17:38:42
--- NOTE | 2021-07-02 17:43 | PDOC ---
MODERATE SEDATION ASSESSMENT RISKS/ALTERNATIVES Risks/Alternatives Risks and alternatives of this type of sedation and procedure discussed with: RISK/ALTERNATIVES: Patient H & P ON CHART H & P H & P on chart and reviewed for co-morbid conditions and appropriate labs. H&P ON CHART: Yes STATUS PREG STATUS ASSESSED: N/A MEDS/ALLERGIES REVIEWED Meds/Allergies Reviewed Medications and Allergies including time and route of recently administered narcotics and sedatives. MEDS/ALLERGIES REVIEWED: Yes ASA RATING ASA RATING: II AIRWAY ASSESSMENT Airway Assessment Airway patency, oral function limitations, presence of caps, crowns, dentures, partials, and ability to extend neck assessed. AIRWAY ASSESSMENT: Yes MALLAMPATI SCORE MALLAMPATI SCORE: II PRE-SEDATION ASSESSMENT PRE-SEDATION ASSESSMENT: Yes RAKESH LANCASTER MD Jul 02, 2021 17:43
[2021-07-02] MEDS ORDERED: ATORVASTATIN CALCIUM 40 MG TABLET. PO SCH (21:00)
[2021-07-03 03:59] VITALS: BP 103/61
[2021-07-03 07:00] VITALS: BP 110/64
[2021-07-03] MEDS ORDERED: PRASUGREL 10 MG TABLET. PO SCH (08:00)
[2021-07-03] MEDS ORDERED: ASPIRIN ENTERIC COATED 81 MG TABLET.DR. PO SCH (08:00)
[2021-07-03 10:55] VITALS: BP 120/83
--- NOTE | 2021-07-03 12:29 | NUR ---
SS following up with discharge planning. SS reviewed pt chart and discussed with pt RN. Pt is currently on room air. COVID19 negative. Cardiology following. Pt had heart cath on 07/02/2021. Discharge plan is currently to home when medically ready for discharge. SS will continue to follow for discharge planning.
[2021-07-03] MEDS ORDERED: PRAS10TA9 PO (13:04)
[2021-07-03] MEDS ORDERED: ASPI-886 PO (13:04)
[2021-07-03] MEDS ORDERED: ATOR40TA59 PO (13:04)
[2021-07-03] MEDS ORDERED: NITR0.4T24 SL (13:04)
--- NOTE | 2021-07-03 13:12 | PDOC ---
[facility] PROGRESS NOTE Date of Service DOS: DATE: 07/03/21 TIME: 13:08 Chief Complaint Chief Complaint Acute PA Status post cardiac catheterization with 2 stents to the RCA ( 1. Acute on chronic diastolic heart failure 2. Two-vessel coronary artery disease 3. Successful complex PCI with intravascular ultrasound guidance of the right coronary artery with implantation of overlapping 3.0 x 38 and 3.5 x 32 mm Promus Elite drug-eluting stents. ) History of Present Illness History of Present Illness 35 yo M with medical history of anxiety/depression on Lexapro and lumbar back pain, presents to the ED with complaints of throbbing and clenching left-sided chest pain that radiates into his bicep and down into his hand that started at 815 this morning with associated sweating and nausea. States pain and discomfort has been constant. Father with history of PA at 51 and mother with history of PA in her early 40s. Brother has a history of cardiac surgery 1 month ago. Both grandparents with history of coronary artery disease. Patient denies any tobacco, cocaine or methamphetamine abuse. No recent alcohol use. Past surgical history of umbilical hernia repair November 18, 2019. Works in the [employer] and walks approximately 7 miles per day. Is been vaccinated for COVID and boosted. No history of Covid infection. No excessive caffeine use, drinks 1 soda per day. No personal or family history EKG initially sinus bradycardia with hyperacute T waves 2 3 aVF with T WI aVL and V2. High-sensitivity troponin elevated 6->82->2486. To cardiac stucco laborer: 07/02: Patient had cardiac cath this morning got 2 stents to the RCA. Currently on Aggrastat drip 07/03: chest pain free. No shortness of breath. Started on Brilinta aspirin statin. Has family is supportive visiting currently. Consults: Cardiology Vitals/I&O Vitals/I&O: Vital Signs Date Time Temp Pulse Resp B/P (MAP) Pulse Ox O2 Delivery O2 Flow Rate FiO2 07/03/21 10:55 91 18 120/83 (95) 98 Room Air 07/03/21 08:00 2.0 07/03/21 07:00 97.9 97.9 I & O 07/02/21 07/02/21 07/03/21 15:00 23:00 07:00 Intake Total 0 ml 490 ml 266.5 ml Output Total 225 ml 700 ml Balance 0 ml 265 ml -433.5 ml Physical Exam General: Alert, No acute distress Heart: Regular rate Abdomen: Normal bowel sounds Assessment and Plan Assessmemt and Plan Problems Medical Problems: (1) Chest pain at rest Status: Acute Comment Review of Relevant I have reviewed the following items brigid (where applicable) has been applied. Medications: Current Medications Medications (Trade) Dose Ordered Sig/Kelsey Route PRN Reason Start Time Stop Time Status Last Admin Dose Admin Aspirin (Ecotrin) 81 mg DAILYWBKFT PO 07/03/21 08:00 07/03/21 07:54 Prasugrel (Effient) 10 mg DAILYWBKFT PO 07/03/21 08:00 07/03/21 07:54 Atorvastatin Calcium (Lipitor) 40 mg QHS PO 07/02/21 21:00 07/02/21 20:00 Justifications for Admission Other Justification ISHAAN ESPINAL MD Jul 03, 2021 13:12
--- NOTE | 2021-07-03 13:13 | PDOC3 ---
Discharge Summary Visit Information Date of Admission: Jul 01, 2021 Date of Discharge: Jul 03, 2021 Admitting Diagnosis: Chest pain at rest Final Diagnosis Problems Medical Problems: (1) Chest pain at rest Status: Acute Brief Hospital Course Allergies Allergies Coded Allergies Type Severity Reaction Last Updated Verified No Known Drug Allergies 07/01/21 No Vital Signs Vital Signs Date Time Temp Pulse Resp B/P (MAP) Pulse Ox O2 Delivery O2 Flow Rate FiO2 07/03/21 10:55 91 18 120/83 (95) 98 Room Air 07/03/21 08:00 2.0 07/03/21 07:00 97.9 97.9 Lab Results Laboratory Tests Test 07/01/21 13:30 07/01/21 15:39 07/01/21 16:45 07/01/21 20:04 Troponin I High Sensitivity 82 ng/L (4-75) 2486 ng/L (4-75) Urine Collection Type Unknown Urine Color Yellow Urine Clarity Clear Urine pH 7.5 (<5.0-8.0) Urine Specific [place] 1.015 (1.000-1.030) Urine Protein Negative mg/dL (NEG-TRACE) Urine Glucose (UA) Negative mg/dL (NEG) Urine Ketones (Stick) Trace mg/dL (NEG) Urine Blood Negative (NEG) Urine Nitrite Negative (NEG) Urine Bilirubin Negative (NEG) Urine Urobilinogen Dipstick 0.2 mg/dL (0.2 mg/dL) Urine Leukocyte Esterase Negative (NEG) Urine RBC 0 /HPF (0-2) Urine WBC 0 /HPF (0-4) Urine Bacteria 0 /HPF (0-FEW) Urine Mucus Slight /LPF Urine Opiates Screen Pos (NEG) Urine Methadone Screen Neg (NEG) Urine Barbiturates Neg (NEG) Urine Phencyclidine Screen Neg (NEG) Urine Amphetamine/Methamphetamine Neg (NEG) Urine Benzodiazepines Screen Neg (NEG) Urine Cocaine Screen Neg (NEG) Urine Cannabinoids Screen Neg (NEG) Urine Ethyl Alcohol Neg (NEG) Heparin Anti-Xa Act, Unfractionated 0.25 IU/mL (0.30-0.70) Test 07/02/21 01:20 07/02/21 07:55 07/02/21 08:56 Heparin Anti-Xa Act, Unfractionated 0.19 IU/mL (0.30-0.70) 0.64 IU/mL (0.30-0.70) White Blood Count 9.7 x10^3/uL (4.0-11.0) Red Blood Count 4.18 x10^6/uL (4.30-5.70) Hemoglobin 12.9 g/dL (13.0-17.5) Hematocrit 38.0 % (39.0-53.0) Mean Corpuscular Volume 91 fL (79-100) Mean Corpuscular Hemoglobin 31 pg (25-35) Mean Corpuscular Hemoglobin Concent 34 g/dL (31-37) Red Cell Distribution Width 13.5 % (11.5-14.5) Platelet Count 180 x10^3/uL (140-400) Sodium Level 140 mmol/L (136-145) Potassium Level 3.7 mmol/L (3.5-5.1) Chloride Level 107 mmol/L (98-107) Carbon Dioxide Level 27 mmol/L (21-32) Anion Gap 6 (6-14) Blood Urea Nitrogen 11 mg/dL (8-26) Creatinine 1.1 mg/dL (0.7-1.3) Estimated GFR (Cockcroft-Gault) 75.3 Glucose Level 123 mg/dL (70-99) Calcium Level 8.4 mg/dL (8.5-10.1) Triglycerides Level 77 mg/dL (0-150) Cholesterol Level 133 mg/dL (0-200) LDL Cholesterol, Calculated 76 mg/dL (0-100) VLDL Cholesterol, Calculated 15 mg/dL (0-40) Non-HDL Cholesterol Calculated 91 mg/dL (0-129) HDL Cholesterol 42 mg/dL (40-60) Cholesterol/HDL Ratio 3.2 Thyroid Stimulating Hormone (TSH) 0.339 uIU/mL (0.358-3.74) Activated Clotting Time 220 sec (92-181) Brief Hospital Course Mr Atwood is a 35 yo M with medical history of anxiety/depression on Lexapro and lumbar back pain, presents to the ED with complaints of throbbing and clenching left-sided chest pain that radiates into his bicep and down into his hand that started at 815 this morning with associated sweating and nausea. States pain and discomfort has been constant. Father with history of AK at 51 and mother with history of AK in her early 40s. Brother has a history of cardiac surgery 1 month ago. Both grandparents with history of coronary artery disease. Patient denies any tobacco, cocaine or methamphetamine abuse. No recent alcohol use. Past surgical history of umbilical hernia repair November 18, 2019. Works in the [employer] at [employer] and walks approximately 7 miles per day. Is been vaccinated for COVID and boosted. No history of Covid infection. No excessive caffeine use, drinks 1 soda per day. No personal or family history EKG initially sinus bradycardia with hyperacute T waves 2 3 aVF with T WI aVL and V2. High-sensitivity troponin elevated 6->82->2486. To cardiac greens laborer: 07/02: Patient had cardiac cath this morning got 2 stents to the RCA. Currently on Aggrastat drip 07/03: chest pain free. No shortness of breath. Started on Brilinta aspirin statin. Has family is supportive visiting currently. Consults: Cardiology Acute AK Status post cardiac catheterization with 2 stents to the RCA ( 1. Acute on chronic diastolic heart failure 2. Two-vessel coronary artery disease 3. Successful complex PCI with intravascular ultrasound guidance of the right coronary artery with implantation of overlapping 3.0 x 38 and 3.5 x 32 mm Promus Elite drug-eluting stents. ) Anxiety with depression Greater than 30 minutes spent on d/c home Discharge Information Condition at Discharge: Improved Follow Up: Weeks (1) Disposition/Orders: D/C to Home Scheduled Aspirin (Aspirin Ec) 81 Mg Tablet.dr, 81 MG PO DAILYWBKFT for CAD for 30 Days, #30 Ref 11 Prescribed by: ISHAAN ESPINAL MD on 07/03/21 1304 Atorvastatin Calcium (Atorvastatin Calcium) 40 Mg Tablet, 40 MG PO QHS for HLD/CAD for 30 Days, #30 Ref 11 Prescribed by: ISHAAN ESPINAL MD on 07/03/21 1304 Escitalopram Oxalate (Lexapro) 20 Mg Tablet, 1 TAB PO DAILY for depression, #90 Ref 3 (Reported) Entered as Reported by: PINA FINCH on 07/01/211954 Last Action: New Order on 07/01/211954 by PINA FINCH Multivitamin (Multi-Vitamin Daily) 1 Each Tablet, 1 TAB PO DAILY for . for 30 Days, #30 Ref 0 (Reported) Entered as Reported by: PINA FINCH on 07/01/211954 Last Action: New Order on 07/01/211954 by PINA FINCH Omeprazole (Omeprazole) 40 Mg Capsule.dr, 1 CAP PO DAILY for gerd, #30 Ref 3 (Reported) Entered as Reported by: PINA FINCH on 07/01/211954 Last Action: New Order on 07/01/211954 by PINA FINCH Prasugrel Hcl (Effient) 10 Mg Tablet, 10 MG PO DAILYWBKFT for CAD for 30 Days, #30 Ref 11 Prescribed by: ISHAAN ESPINAL MD on 07/03/21 1304 Scheduled PRN Nitroglycerin (Nitrostat) 0.4 Mg Tab.subl, 0.4 MG SL PRN Q5MIN PRN for CHEST PAIN for 30 Days, #9 Ref 11 Prescribed by: ISHAAN ESPINAL MD on 07/03/21 1304 Justicifation of Admission Dx: Justifications for Admission: Justification of Admission Dx: Yes ISHAAN ESPINAL MD Jul 03, 2021 13:13
--- NOTE | 2021-07-03 19:36 | CARD ---
MR#: [id number] Date of Study: 07/03/2021 Ordering Physician: RAKESH LANCASTER, Referring Physician: RAKESH LANCASTER, Tech: Leslie Becerril [facility] APPROVED REPORT EXAM: Two-dimensional and M-mode echocardiogram with Doppler and color Doppler. Other Information Quality : GoodHR: 90bpm Rhythm : NSR INDICATION Cardiac Disease: CAD Chest Pain 2D DIMENSIONS RVDd3.7 (2.9-3.5cm)Left Atrium(2D)3.4 (1.6-4.0cm) IVSd1.1 (0.7-1.1cm)Aortic Root(2D)2.9 (2.0-3.7cm) LVDd4.7 (3.9-5.9cm)LVOT Diameter2.0 (1.8-2.4cm) PWd1.2 (0.7-1.1cm)LVDs2.9 (2.5-4.0cm) FS (%) 37.6 %SV69.5 ml Aortic Valve AoV Peak Lee.150.1cm/sAoV VTI30.3cm AO Peak GR.9.0mmHgLVOT Peak Lee.129.7cm/s AO Mean GR.4mmHgAVA (VMAX)2.65cm2 Mitral Valve MV E Xtkwijud99.9cm/sMV DECEL PCBA159at MV A Crmlonmq86.1cm/sE/A Ratio1.4 Pulmonary Valve PV Peak Vqfbmcfj451.3cm/s LEFT VENTRICLE The left ventricle is normal size. There is normal left ventricular wall thickness. The left ventricu lar systolic function is normal and the ejection fraction is 55-60% There is normal LV segmental wall motion. The left ventricular diastolic function and filling is normal for age. RIGHT VENTRICLE The right ventricle is normal size. There is normal right ventricular wall thickness. The right ventr icular systolic function is normal. ATRIA The left atrium size is normal. The right atrium size is normal. The interatrial septum is intact wit h no evidence for an atrial septal defect or patent foramen ovale as noted on 2-D or Doppler imaging. AORTIC VALVE The aortic valve is normal in structure and function. Doppler and Color Flow revealed no significant aortic regurgitation. There is no significant aortic valvular stenosis. MITRAL VALVE The mitral valve is normal in structure and function. There is no evidence of mitral valve prolapse. There is no mitral valve stenosis. Doppler and Color Flow revealed no mitral valve regurgitation note d. TRICUSPID VALVE The tricuspid valve is normal in structure and function. Doppler and Color Flow revealed no tricuspid valve regurgitation noted. There is no tricuspid valve stenosis. PULMONIC VALVE The pulmonary valve is normal in structure and function. Doppler and Color Flow revealed no pulmonic valvular regurgitation. GREAT VESSELS The aortic root is normal in size. The ascending aorta is normal in size. The IVC is normal in size a nd collapses >50% with inspiration. PERICARDIAL EFFUSION There is no evidence of significant pericardial effusion. Critical Notification Critical Value: No <Conclusion> The left ventricle is normal size. The left ventricular systolic function is normal and the ejection fraction is 55-60% Doppler and Color Flow revealed no significant aortic regurgitation. There is no significant aortic valvular stenosis. Doppler and Color Flow revealed no mitral valve regurgitation noted. Doppler and Color Flow revealed no tricuspid valve regurgitation noted. Signed by : Hollis Ricardo MD Electronically Approved : 07/03/2021 19:35:15
--- NOTE | 2021-07-04 16:45 | PDOC ---
PROGRESS NOTES Date of Service DATE: 07/04/21 TIME: 16:43 Subjective Subjective Patient seen and examined on 07/03/2021. He is comfortable and pain-free. Objective Objective Vital Signs Date Time Temp Pulse Resp B/P (MAP) Pulse Ox O2 Delivery O2 Flow Rate FiO2 07/03/21 10:55 91 18 120/83 (95) 98 Room Air 07/03/21 08:00 2.0 07/03/21 07:00 97.9 97.9 Physical Exam Abdomen: Normal bowel sounds Heart: Regular rate Extremities: No clubbing General: Alert Lungs: Clear to auscultation Assessment Assessment Problems Medical Problems: (1) Chest pain at rest Status: Acute 1. Coronary artery disease. Status post 2 drug-eluting stents placed to the right coronary artery. Clinically stable and pain-free. Echocardiogram shows intact LV systolic function. Continue prasugrel and aspirin for the patient's stent. 2. Hypertension. Controlled. 3. Hyperlipidemia. On Lipitor. Continue present medical treatment. Outpatient follow-up in 3 to 4 weeks. Comment Review of Relevant I have reviewed the following items brigid (where applicable) has been applied. Medications Current Medications Aspirin (Aspirin Chewable) 324 mg 1X ONCE PO Last administered on 07/01/21at 10:38; Start 07/01/21 at 10:30; Stop 07/01/21 at 10:31; Status DC Sodium Chloride 1,000 ml @ 1,000 mls/hr Q1H IV Last administered on 07/01/21at 10:40; Start 07/01/21 at 10:30; Stop 07/01/21 at 11:29; Status DC Ondansetron HCl (Zofran) 4 mg 1X ONCE IVP Last administered on 07/01/21at 10:38; Start 07/01/21 at 10:30; Stop 07/01/21 at 10:31; Status DC Morphine Sulfate (Morphine Sulfate) 4 mg 1X ONCE IVP Last administered on at 10:39; Start 07/01/21 at 10:30; Stop 07/01/21 at 10:31; Status DC Heparin Sodium (Porcine) (Heparin Sodium) 4,000 unit 1X ONCE IV Last administered on 07/01/21at 10:37; Start 07/01/21 at 10:45; Stop 07/01/21 at 10:46; Status DC Heparin Sodium/ Dextrose 250 ml @ 8.724 mls/ hr CONT PRN IV PER PROTOCOL Last administered on 07/02/21at 07:45; Start 07/01/21 at 10:30; Stop 07/02/21 at 10:14; Status DC Heparin Sodium (Porcine) (Heparin Sodium) 1,800 unit PRN Q6HRS PRN IV FOR UFH LEVEL LESS THAN 0.2 Last administered on 07/02/21at 02:14; Start 07/01/21 at 10:30; Stop 07/02/21 at 10:16; Status DC Heparin Sodium (Porcine) (Heparin Sodium) 10,000 unit STK-MED ONCE .ROUTE ; Start 07/01/21 at 10:33; Stop 07/01/21 at 10:33; Status DC Heparin Sodium/ Dextrose 250 ml @ As Directed STK-MED ONCE IV ; Start 07/01/21 at 10:33; Stop 07/01/21 at 10:33; Status DC Lorazepam (Ativan) 0.25 mg PRN Q6HRS PRN PO ANXIETY / AGITATION Last administered on 07/01/21at 23:17; Start 07/01/21 at 14:45; Stop 07/03/21 at 13:35; Status DC Morphine Sulfate (Morphine Sulfate) 2 mg PRN Q2HR PRN IV PAIN Last administered on 07/01/21at 15:59; Start 07/01/21 at 16:00; Stop 07/03/21 at 13:35; Status DC Nitroglycerin (Nitrostat) 0.4 mg STK-MED ONCE SL ; Start 07/01/21 at 16:41; Stop 07/01/21 at 16:42; Status DC Nitroglycerin (Nitrostat) 0.4 mg PRN Q5MIN PRN SL CHEST PAIN Last administered on 07/01/21at 17:12; Start 07/01/21 at 17:00; Stop 07/03/21 at 13:35; Status DC Morphine Sulfate (Morphine Sulfate) 2 mg 1X ONCE IVP ; Start 07/01/21 at 17:15; Stop 07/01/21 at 17:16; Status DC Sodium Chloride 500 ml @ 250 mls/hr 1X ONCE IV Last administered on 07/01/21at 17:35; Start 07/01/21 at 17:30; Stop 07/01/21 at 19:29; Status DC Lidocaine HCl (Xylocaine-Mpf 1% 2ml Vial) 2 ml STK-MED ONCE .ROUTE ; Start 07/02/21 at 08:00; Stop 07/02/21 at 08:00; Status DC Heparin Sodium/ Sodium Chloride 1,500 ml @ As Directed STK-MED ONCE .ROUTE ; Start 07/02/21 at 08:00; Stop 07/02/21 at 08:00; Status DC Iodixanol (Visipaque 320) 100 ml STK-MED ONCE .ROUTE ; Start 07/02/21 at 08:00; Stop 07/02/21 at 08:00; Status DC Fentanyl Citrate (Fentanyl 2ml Vial) 100 mcg STK-MED ONCE .ROUTE ; Start 07/02/21 at 08:22; Stop 07/02/21 at 08:22; Status DC Midazolam HCl (Versed) 2 mg STK-MED ONCE .ROUTE ; Start 07/02/21 at 08:22; Stop 07/02/21 at 08:22; Status DC Heparin Sodium (Porcine) (Heparin Sodium) 10,000 unit STK-MED ONCE .ROUTE ; Start 07/02/21 at 08:22; Stop 07/02/21 at 08:22; Status DC Verapamil HCl (Verapamil) 5 mg STK-MED ONCE .ROUTE ; Start 07/02/21 at 08:22; Stop 07/02/21 at 08:22; Status DC Nitroglycerin (Nitroglycerin) 200 mcg STK-MED ONCE .ROUTE ; Start 07/02/21 at 08:22; Stop 07/02/21 at 08:22; Status DC Atropine Sulfate (ATROPINE 1mg SYRINGE) 1 mg STK-MED ONCE .ROUTE ; Start 07/02/21 at 08:50; Stop 07/02/21 at 08:50; Status DC Tirofiban/Sodium Chloride 250 ml @ As Directed STK-MED ONCE IV ; Start 07/02/21 at 08:50; Stop 07/02/21 at 08:51; Status DC Prasugrel (Effient) 10 mg STK-MED ONCE .ROUTE ; Start 07/02/21 at 09:19; Stop 07/02/21 at 09:19; Status DC Aspirin (Gopi Aspirin) 325 mg STK-MED ONCE .ROUTE ; Start 07/02/21 at 09:20; Stop 07/02/21 at 09:20; Status DC Nitroglycerin (Nitroglycerin) 200 mcg 1X ONCE IART Last administered on 07/02/21at 09:45; Start 07/02/21 at 09:45; Stop 07/02/21 at 09:48; Status DC Verapamil HCl (Verapamil) 2.5 mg 1X ONCE IART Last administered on 07/02/21at 09:45; Start 07/02/21 at 09:45; Stop 07/02/21 at 09:48; Status DC Heparin Sodium (Porcine) (Heparin Sodium) 2,500 unit 1X ONCE IART Last administered on 07/02/21at 09:45; Start 07/02/21 at 09:45; Stop 07/02/21 at 09:48; Status DC Heparin Sodium/ Sodium Chloride (HEPARIN for ARTERIAL LINE FLUSH) 1,000 unit 1X ONCE IART Last administered on 07/02/21at 08:30; Start 07/02/21 at 09:45; Stop 07/02/21 at 09:48; Status DC Midazolam HCl (Versed) 2 mg 1X ONCE IV Last administered on 07/02/21at 08:42; Start 07/02/21 at 09:45; Stop 07/02/21 at 09:48; Status DC Fentanyl Citrate (Fentanyl 2ml Vial) 100 mcg 1X ONCE IV Last administered on 07/02/21at 09:14; Start 07/02/21 at 09:45; Stop 07/02/21 at 09:48; Status DC Iodixanol (Visipaque 320) 103 ml 1X ONCE IART Last administered on 07/02/21at 09:45; Start 07/02/21 at 09:45; Stop 07/02/21 at 09:48; Status DC Prasugrel (Effient) 60 mg 1X ONCE PO Last administered on 07/02/21at 09:32; Start 07/02/21 at 09:45; Stop 07/02/21 at 09:48; Status DC Aspirin (Gopi Aspirin) 325 mg 1X ONCE PO Last administered on 07/02/21at 09:32; Start 07/02/21 at 09:45; Stop 07/02/21 at 09:48; Status DC Tirofiban/Sodium Chloride 250 ml @ 0 mls/hr CONT PRN IV PER PROTOCOL Last administered on 07/02/21at 22:17; Start 07/02/21 at 09:45; Stop 07/03/21 at 03:44; Status DC Lidocaine HCl (Xylocaine-Mpf 1% 2ml Vial) 2 ml 1X ONCE INJ Last administered on 07/02/21at 08:20; Start 07/02/21 at 09:45; Stop 07/02/21 at 09:48; Status DC Nitroglycerin (Nitroglycerin) 200 mcg 1X ONCE ICAR Last administered on 07/02/21at 09:13; Start 07/02/21 at 09:45; Stop 07/02/21 at 09:48; Status DC Info (CONTRAST GIVEN -- Rx MONITORING) 1 each PRN DAILY PRN MC SEE COMMENTS; Start 07/02/21 at 10:00; Stop 07/03/21 at 13:35; Status DC Nitroglycerin (Nitroglycerin) 200 mcg STK-MED ONCE .ROUTE ; Start 07/02/21 at 10:11; Stop 07/02/21 at 10:11; Status DC Aspirin (Ecotrin) 81 mg DAILYWBKFT PO Last administered on 07/03/21at 07:54; Start 07/03/21 at 08:00; Stop 07/03/21 at 13:35; Status DC Prasugrel (Effient) 10 mg DAILYWBKFT PO Last administered on 07/03/21at 07:54; Start 07/03/21 at 08:00; Stop 07/03/21 at 13:35; Status DC Atorvastatin Calcium (Lipitor) 40 mg QHS PO Last administered on 07/02/21at 20:00; Start 07/02/21 at 21:00; Stop 07/03/21 at 13:35; Status DC Active Scripts Active Aspirin Ec (Aspirin) 81 Mg Tablet. 81 Mg PO [id number] 30 Days Nitrostat (Nitroglycerin) 0.4 Mg Tab.subl 0.4 Mg SL PRN Q5MIN PRN 30 Days Atorvastatin Calcium 40 Mg Tablet 40 Mg PO QHS 30 Days Effient (Prasugrel Hcl) 10 Mg Tablet 10 Mg PO [id number] 30 Days Reported Multi-Vitamin Daily (Multivitamin) 1 Each Tablet 1 Tab PO DAILY 30 Days Omeprazole 40 Mg Capsule.dr 1 Cap PO DAILY Lexapro (Escitalopram Oxalate) 20 Mg Tablet 1 Tab PO DAILY Justifications for Admission Other Justification ANGIE MEYER MD Jul 04, 2021 16:45
== END 2021-07-03 13:35 | disposition home or self-care (01) | DRG 246 ==
LOC: ER 10:08 → 6 SOUTH 10:35
PROVIDERS: ADMIT Internal Medicine; ATTEND Internal Medicine
PROC: B2111ZZ Fluoroscopy of Multiple Coronary Arteries using Low Osmolar Contrast (ICD-10-PCS; principal; 2021-07-02)
PROC: 027035Z Dilation of Coronary Artery, One Artery with Two Drug-eluting Intraluminal Devices, Percutaneous Approach (ICD-10-PCS; 2021-07-02)
PROC: 4A023N7 Measurement of Cardiac Sampling and Pressure, Left Heart, Percutaneous Approach (ICD-10-PCS; 2021-07-02)
DX: I21.19 ST elevation (STEMI) myocardial infarction involving other coronary artery of inferior wall (principal); I50.33 Acute on chronic diastolic (congestive) heart failure; E78.5 Hyperlipidemia, unspecified; I11.0 Hypertensive heart disease with heart failure; I25.10 Atherosclerotic heart disease of native coronary artery without angina pectoris; F32.A Depression, unspecified; F41.9 Anxiety disorder, unspecified; R03.0 Elevated blood-pressure reading, without diagnosis of hypertension; Z79.899 Other long term (current) drug therapy; Z20.822 Contact with and (suspected) exposure to COVID-19; Z79.02 Long term (current) use of antithrombotics/antiplatelets; Z82.49 Family history of ischemic heart disease and other diseases of the circulatory system
CPT/HCPCS: 36415; 37252; 71045; 80048; 80053; 80061; 80307; 81001; 83735; 83880; 84443; 84484; 85025; 85027; 85347; 85379; 85520; 85610; 85730; 87426; 92928; 93005; 93306; 93458; 96361; 96374; 96375; 96376; 99152; 99153; C1725; C1753; C1894; J1644; J2250; J2270; J2405; J3010; J3490; J7030; J7040; Q9967; 99285-25; C1874; C8929; C9600; G0378; J3246